=== PATIENT | male | born 1960 | race Caucasian/White ===

== ENCOUNTER 2017-07-25 10:29 | Inpatient (IN) | payer OTHER ==
[~2017-07-25] VITALS: Ht 170.2 cm; Wt 83.5 kg
--- NOTE | 2017-07-25 11:12 | ED GENERAL ADULT ---
History of Present Illness General Chief Complaint: Low Back Pain/Injury Stated Complaint: BACK PAIN RADIATING DOWN LEG Source: patient, family Exam Limitations: no limitations Vital Signs & Intake/Output Vital Signs & Intake/Output Vital Signs Date Time Temp Pulse Resp B/P B/P Pulse O2 O2 Flow FiO2 Mean Ox Delivery Rate 07/26 0751 98.6 58 18 119/64 96 Room Air 07/26 0544 98.6 58 20 119/64 96 Room Air 07/26 0313 99.0 62 20 128/72 97 Room Air 07/25 2328 99.1 64 16 114/55 97 Room Air 07/25 2121 98.9 62 20 128/70 97 Room Air 07/25 1933 99.6 60 16 132/65 96 Room Air 07/25 1539 98.2 59 18 139/69 07/25 1539 98.2 59 18 139/69 07/25 1340 98.2 59 18 139/69 98 Room Air ED Intake and Output 07/26 0000 07/25 1200 Intake Total 0 Output Total Balance 0 Intake, Oral 0 Patient 184 lb Weight Weight Reported by Patient Measurement Method Allergies Coded Allergies: No Known Allergies (07/25/17) Triage Note: 57 YO MALE TO TRIAGE C/O LOW BACK PAIN RADIATING DOWN L LEG. STATES PAIN STARTED AFTER HE LEF TTHE GYM APPROX 1 WEEK AGO, STATES THE BACK PAIN IS BETTER BUT NOW HE HAS SWELLING TO ENTIRE L LEG. UNABLE TO VISUALIZE IN TRIAGE. Triage Nurses Notes Reviewed? yes HPI: 57 yo M PMH HTN, HLD presenting with back pain, leg swelling. Patient endorses 3-4 days of bilateral lower back pain, now worse in the left hip, constant with fluctuating intensity, worse with movement, associated decreased ambulation. Yesterday patient developed episode of palpitations, dizziness, diaphoresis while bending over to pick something up off the floor, EMS called, symptoms resolved en route to the ED, evaluated at [facility], per patient EKG unremarkable, no lab work sent, told that "there are crystals in the ear that can make people dizzy." Today patient woke up with pronounced LLE swelling and pain, no parasthesias or paralysis, but some difficulty walking 2/2 swelling. Denies current chest pain, palpitations, SOB. (Jacky BECKER,Erik) Reconcile Medications Acetaminophen (Tylenol Extra Strength) 500 MG TABLET 1 TAB PO TID pain Apixaban (Eliquis) 5 MG TABLET 5 MG PO SEE ADMIN CRITERIA DVT/PE TAKE 2 TABS BID DAILY FROM 07/26- 07/31 TAKE ONE TAB BID DAILY FROM 08/01 ONWARDS Atorvastatin Calcium 40 MG TABLET 40 MG PO 1700 Hyperlipidemia Escitalopram Oxalate (Lexapro) 10 MG TABLET 1 TAB PO DAILY DEPRESSION ( Reported) Losartan (Cozaar) 100 MG TABLET 1 TAB PO DAILY BP (Reported) Metoprolol Succ XL (Toprol XL) 25 MG TAB 1 TAB PO DAILY BP (Reported) (Mandy BECKER,Gina) Past History Travel History Traveled to [place] past 21 day No Medical History Any Pertinent Medical History? see below for history Neurological: NONE EENT: NONE Cardiovascular: hypertension, hyperlipidemia Respiratory: NONE Gastrointestinal: NONE Hepatic: NONE Renal: NONE Musculoskeletal: NONE Psychiatric: anxiety Endocrine: NONE Blood Disorders: NONE Cancer(s): NONE Surgical History Surgical History: none Psychosocial History What is your primary language Maltese Tobacco Use: Quit >30 days ago Family History Hx Contributory? Yes (Erik Rico MD) Review of Systems Review of Systems Constitutional: Reports: no symptoms. EENTM: Reports: no symptoms. Respiratory: Reports: see HPI. Cardiovascular: Reports: see HPI. GI: Reports: no symptoms. Genitourinary: Reports: no symptoms. Musculoskeletal: Reports: see HPI. Skin: Reports: no symptoms. Neurological/Psychological: Reports: no symptoms. Hematologic/Endocrine: Reports: no symptoms. Immunologic/Allergic: Reports: no symptoms. All Other Systems: Reviewed and Negative (Erik Rico MD) Physical Exam Physical Exam General Appearance: well developed/nourished, no apparent distress, alert Ears, Nose, Throat: normal pharynx Neck: normal inspection, full range of motion, limited range of motion Respiratory: normal breath sounds, no respiratory distress, lungs clear Cardiovascular: regular rate/rhythm, normal peripheral pulses Peripheral Pulses: 2+ tibialis posterior (R), 2+ tibialis posterior (L) Gastrointestinal: normal bowel sounds, soft, non-tender Extremities: swelling Comments: Lungs: CTAB Cardiovascular: RRR LLE: Marked circumferential swelling of left lower extremity with edema and mild TTP throughout, 2+ PT pulse without motor deficits Core Measures ACS in differential dx? Yes CVA/TIA Diagnosis: No Sepsis Present: No Sepsis Focused Exam Completed? No (Erik Rico MD) Progress Differential Diagnoses I considered the following diagnoses in my evaluation of the patient: [ Clot, cellulitis, vascular insufficiency, AAA, Aortic dissection] Plan of Care: Orders Procedure Date/time Status Change service to 07/26 0829 Active Vital Signs 07/26 0740 Active Teach/Educate 07/26 0740 Active Pain Treatment and Response 07/26 0740 Active Nutritional Intake, Monitor 07/26 0740 Active Isolation 07/26 0740 Active Intake & Output 07/26 0740 Active Patient Care Conference 07/26 0740 Active Activity/Ambulation 07/26 0740 Active LIPID PANEL 07/26 0600 Complete CBC WITHOUT DIFFERENTIAL 07/26 0600 Complete Discharge Patient 07/26 UNK Active Change service to 07/26 UNK Active Regular Diet 07/25 D Active Patient Data 07/25 2320 Active Transfer patient to 07/25 1725 Active Code Status 07/25 1549 Active Misc Message 07/25 1548 Active ED Holding Orders 07/25 1548 Active Code Status 07/25 1548 Complete Admit to inpatient 07/25 1547 Active Pathway - chart 07/25 1502 Active House Staff 07/25 1502 Active Patient Data 07/25 1502 Active Code Status 07/25 1502 Complete Add-on Test (ER Only) 07/25 1424 Active Patient Data 07/25 1403 Active B-TYPE NATRIURETIC PEP (BNP) 07/25 1200 Complete Intake & Output 07/25 1120 Active VTE Mechanical Prophylaxis 07/25 UNK Active Telemetry/City Assessor 07/25 UNK Complete Nursing Misc 07/25 UNK Active Elevate 07/25 UNK Active Current Medications Sig/Myrna Start time Last Medication Dose Stop Time Status Admin Atorvastatin Calcium 40 MG 1700 07/26 1700 AC (Lipitor) Acetaminophen 1,000 MG Q6P PRN 07/25 2330 AC 07/26 (Ofirmev) 0311 N/A 1 UNIT (No Carrier) Morphine Sulfate 2 MG Q8P PRN 07/25 2330 AC 07/25 (Morphine) 2324 Apixaban 10 MG Q12H 07/25 1730 AC 07/26 (Eliquis) 08/01 0531 0543 Escitalopram Oxalate 10 MG DAILY 07/25 1501 AC 07/26 (Lexapro) 1041 Losartan Potassium 100 MG DAILY 07/25 1501 AC 07/26 (Cozaar) 1041 Metoprolol Succinate 25 MG DAILY 07/25 1501 AC 07/26 (Toprol XL) 1041 Laboratory Tests 07/26/17 0549: Triglycerides 149, Cholesterol 210 H, LDL Cholesterol, Calc 143 H, HDL Cholesterol 38 L, Cholesterol/HDL Ratio 6 H, CBC w Diff NO MAN DIFF REQ, RBC 5.91, MCV 65.6 L, MCH 20.8 L, RDW 14.5, MPV 7.4, Gran % 73.5, Lymphocytes % 14.6 L, Monocytes % 10.8 H, Eosinophils % 0.9, Basophils % 0.2, Absolute Granulocytes 7.3 H, Absolute Lymphocytes 1.4, Absolute Monocytes 1.1 H, Absolute Eosinophils 0.1, Absolute Basophils 0, PUBS MCHC 31.6 L 07/25/17 2020: APTT Cancelled Physician MDM: 57 yo M PMH HTN, HLD presenting with back pain, leg swelling. HR 60s, saturating well on RA, remainder of exam as above. DDx: Aortic dissection, DVT/PE, lumbosacral strain, arterial insufficiency. ECG 1st degree heart block with prolonged GA, Q wave in III, TWI in V1, no QUINN or STD. Troponin negative. Bedside ultrasound with normal abdominal aorta, limited views but no apparent dissection flap or false lumen. Bedside ultrasound of LLE with large clot in left femoral and left popliteal vein, formal LLE U/S ordered. I suspect that the patients dizziness, diaphoresis and palpitations yesterday we're likely 2/2 throwing a large PE that broke up, passing into the subsegmental arteries leading to resolution of Sx, so CTA for PE ordered. CBC, BMP unremarkable. LLE U /S with "extensive, occlusive and nonocclusive deep vein thrombosis in the left lower extremity". CTA PE with "Multiple bilateral pulmonary emboli without evidence of right heart strain". Bedside ultasound without apparent RV dilation or right heart strain, unable to assess TR jets or measure TAPSE given limitations of ED ultrasound, but TAPSE grossly normal with good RV excursion. Heparin gtt started for anticoagulation for PE. Admit for telemetry monitoring, initiation of longitudinal float operator anticoagulation and further evaluation. Initial ED EKG: none (Jacky BECKER,Erik) Departure Departure Disposition: STILL A PATIENT Condition: Stable Clinical Impression Primary Impression: PE (pulmonary thromboembolism) Secondary Impressions: Left leg DVT Referrals: Oscar Nation MD (PCP/Family) Departure Forms: Customer Survey General Discharge Information Admission Note Spoke With: Suha Echevarria MD Documentation of Exam: Documentation of any treatments & extenuating circumstances including Concerns Regarding Discharge (functional status, medication knowledge or non-compliance, living conditions, etc.) that warrant an admission rather than observation: [ Presents with left lower extremity swelling, episode of palpitations and diaphoresis yesterday, was found to have large occlusive left lower extremity DVT with multiple bilateral subsegmental pulmonary emboli, the patient requires admission for initiation of anticoagulation, on a tree monitoring, and further evaluation by vascular surgery and possibly pulmonary consult, if discharge the patient has a high likelihood of progressive clotting, possibly with recurrent thromboembolism leading to arrhythmia or sudden with possible neurologic morbidity or mortality] (Erik Rico MD) Departure Prescriptions: Current Visit Scripts Apixaban (Eliquis) 5 MG PO SEE ADMIN CRITERIA #90 TAB TAKE 2 TABS BID DAILY FROM 07/26- 07/31 TAKE ONE TAB BID DAILY FROM 08/01 ONWARDS Atorvastatin Calcium 40 MG PO 1700 #30 TAB Acetaminophen (Tylenol Extra Strength) 1 TAB PO TID #60 TAB Resident Co-Sign Statement Statement: ED Attending supervision documentation- [] I saw and evaluated the patient. I have also reviewed all the pertinent lab results and diagnostic results. I agree with the findings and the plan of care as documented in the Resident's documentation. [X] I have reviewed the ED Record and agree with the Resident's documentation. [] Additions or exceptions (if any) to the Resident's note and plan are summarized below: [] (Mandy BECKER,Gina) Critical Care Note Critical Care Note Critical Care Time: non-applicable (Erik Rico MD)
[2017-07-25] MEDS ORDERED: TOPROL XL25 M1 PO (12:04)
[2017-07-25] MEDS ORDERED: COZAAR100 M1 PO (12:05)
[2017-07-25] MEDS ORDERED: LEXAPRO10 M1 PO (12:05)
[2017-07-25 12:10] LABS: ABSOLUTE BASOPHIL COUNT 0 /CUMM (0.0-0.2); ABSOLUTE EOSINOPHIL COUNT 0.1 /CUMM (0.0-0.7); ABSOLUTE GRANULOCYTE CT 8.9 /CUMM (1.4-6.5); ABSOLUTE LYMPH COUNT 1.1 /CUMM (1.2-3.4); ABSOLUTE MONOCYTE COUNT 0.8 /CUMM (0.10-0.60); BASOPHIL % 0.2 % (0.0-2.0); EOSINOPHIL % 0.8 % (0-5); GRANULOCYTE % 81.1 % (42.2-75.2); HEMATOCRIT 42.1 % (42-52); MEAN CORPUSCULAR HGB CONC 31.9 G/DL (33.0-37.0); MEAN CORPUSCULAR VOLUME 65.9 FL (80.0-94.0); MEAN PLATELET VOLUME 7.6 FL (7.4-10.4); PLATELET COUNT 195 /CUMM (130-400); RBC DISTRIBUTION WIDTH 14.7 % (11.5-14.5); RED BLOOD CELL CT 6.39 /CUMM (4.70-6.10); WHITE BLOOD CELL COUNT 10.9 /CUMM (4.8-10.8)
--- NOTE | 2017-07-25 13:33 | ULTRASOUND REPORT ---
EXAMINATION: US TRIPLEX LOWER EXTREMITY, LEFT CLINICAL INFORMATION: Left leg swelling. Shortness of breath. COMPARISON: None TECHNIQUE: Color-flow triplex imaging with spectral analysis and compression Doppler were performed on the lower extremity. FINDINGS: Grayscale and color Doppler images show occlusive thrombus within the left common femoral vein. Thrombus also observed in the greater saphenous vein at the saphenofemoral junction. There is occlusive thrombus within the superficial femoral vein of the proximal, mid and distal thigh. The thrombus is nearly completely occlusive in the popliteal vein and tibioperoneal trunk. There appears to be nonocclusive thrombus within calf veins, as well. No Renee's cyst. IMPRESSION: There is extensive, occlusive and nonocclusive deep vein thrombosis in the left lower extremity as described above. The critical test result was discussed with Erik Rico at 1:28 PM on 07/25/2017 and it was ascertained that the content and the importance of the findings was understood at the time of the direct communication.
--- NOTE | 2017-07-25 13:45 | CT SCAN REPORT ---
EXAMINATION: CT ANGIOGRAM OF THE CHEST WITH CONTRAST (CT PULMONARY ANGIOGRAM FOR PE) CLINICAL INFORMATION: Dizziness and shortness of breath. Left lower extremity deep vein thrombosis. COMPARISON: No pertinent prior studies are available for comparison. TECHNIQUE: Prior to contrast administration, noncontrast localization images were obtained. Subsequently, multidetector volumetric imaging was performed from the thoracic inlet to below the diaphragms following the administration of 95 mL Optiray 320 intravenous contrast. No contrast reaction reported. Sagittal, coronal, and MIP oblique sagittal reformatted images were obtained on the CT workstation, uploaded to PACS, and reviewed. Total exam dose-length product 554 mGy-cm FINDINGS: QUALITY OF STUDY/CONTRAST BOLUS: Satisfactory. PULMONARY ARTERIES: Pulmonary arteries are normal in size. Multiple nonocclusive bilateral pulmonary emboli are seen. There are elongated filling defects extending into subsegmental branches of the right upper lobe, lateral segment of the middle lobe, superior segment of the right lower lobe, interlobar artery and into several segmental branches of right lower lobe. On the left, emboli are seen within the apicoposterior segment of the left upper lobe and within the branch to the inferior segment of the lingula. Also, nonocclusive emboli are present within segmental branches of the left lower lobe. THORACIC AORTA: Normal. LUNGS AND PLEURA: Trachea and central airways are widely patent and normal in caliber. Within the posterior right lower lobe extending to the pleura, there is a focal area of consolidation and groundglass attenuation, likely representing pulmonary hemorrhage and/or infarction secondary to the embolic disease. No pleural effusion or pneumothorax. MEDIASTINUM: The heart size is normal. No pericardial effusion. No evidence of septal bowing or right heart strain. The esophagus is unremarkable. The visualized portion of the thyroid gland is normal. LYMPHATICS: No pathologic sized axillary, hilar or mediastinal lymph nodes. UPPER ABDOMEN: Unremarkable. No reflux of contrast into the hepatic veins to suggest elevated right heart pressures. OSSEOUS STRUCTURES: No acute findings in the degenerated spine. There is multilevel, mild disc space narrowing and osteophyte formation. No aggressive osseous lesions. IMPRESSION: 1. Multiple bilateral pulmonary emboli without evidence of right heart strain. 2. Within the periphery of the posterior right lower lobe, there is a focal region of consolidation and groundglass attenuation, compatible with infarct and/or hemorrhage related to the embolic disease. No pleural effusion. The critical test result was discussed with Erik Rico at 1:28 pm on 07/25/2017 and it was ascertained that the content and the importance of the findings was understood at the time of the direct communication.
--- NOTE | 2017-07-25 14:27 | History & Physical ---
Norma BECKER,Christen 07/25/17 1427: General Information and [facility] MD Statement: I have seen and personally examined ALEXX AVERY and documented this H&P. The patient is a 57 year old M who presented with a patient stated chief complaint of [pain in left lower extremeties]. Source of Information: patient Exam Limitations: no limitations History of Present Illness: Patient is a 57-year-old male with significant past medical history of hypertension, hyperlipidemia, depression presented with chief complaints of pain in the left lower extremity since last 1 week. According to the patient 7 days ago(Wednesday), when he woke up in the morning he felt a strain in his back and he thought he pulled his muscle.He continued working on that day and even on the next day he walked for 3 miles.After that his back pain has gone, but he started having pain in his left hip. Yesterday when he woke up he felt dizzy and when he went to the bathroom, he had an episode of severe perspiration and sweating.He talked to his and went to the [facility]. They did told him that he may have BPPV and need some rest and medication and he will recover after sometime. Yesterday night,he was not able to sleep at all. Today in the morning his pain in the left leg has become worse and he started having severe swelling, started from the hip to the ankle of the left leg. Afterwards he thought to come to [facility] for further evaluation and management. He described his pain located in the left hip, 8-10, burning in nature, radiate to left leg, aggravated by walking. Denies for any fever, chills, URI, urinary infection, dysuria, incontinence of the stool, incontinence of the urine, chest pain, abdominal pain, diarrhea. Past medical history - hypertension, hyperlipidemia, depression Surgical history-tonsillectomy, circumcision. Family history-father had a stroke at the age of 60, Mother had a stroke Allergies-testosterone leading to hives Personal history-lives with the family, he smoked at the age of 30 and was stopped at the age of 35. He smokes one pack per day. He occasionally drinks alcohol, around 1 beer in once or twice a week. He denies any drug abuse. Allergies/Medications Allergies: Coded Allergies: No Known Allergies (07/25/17) Home Med list Escitalopram Oxalate (Lexapro) 10 MG TABLET 1 TAB PO DAILY DEPRESSION ( Reported) Losartan (Cozaar) 100 MG TABLET 1 TAB PO DAILY BP (Reported) Metoprolol Succ XL (Toprol XL) 25 MG TAB 1 TAB PO DAILY BP (Reported) Past History Travel History Traveled to [place] past 21 day No Medical History Neurological: NONE EENT: NONE Cardiovascular: hypertension, hyperlipidemia Respiratory: NONE Gastrointestinal: NONE Hepatic: NONE Renal: NONE Musculoskeletal: NONE Psychiatric: anxiety Endocrine: NONE Blood Disorders: NONE Cancer(s): NONE Surgical History Surgical History: non-contributory Review of Systems Review of Systems Constitutional: Denies: no symptoms. Exam & Diagnostic Data Last 24 Hrs of Vital Signs/I&O Vital Signs Date Time Temp Pulse Resp B/P B/P Pulse O2 O2 Flow FiO2 Mean Ox Delivery Rate 07/25 1539 98.2 59 18 139/69 07/25 1539 98.2 59 18 139/69 07/25 1340 98.2 59 18 139/69 98 Room Air 07/25 1202 98.6 55 18 150/75 98 Room Air 07/25 1033 98.2 89 18 149/79 98 Room Air Intake & Output 07/25 1600 07/25 0800 07/25 0000 Intake Total 0 Output Total Balance 0 Intake, Oral 0 Patient 83.461 kg Weight Weight Reported by Patient Measurement Method Physical Exam General Appearance Alert, Oriented X3, Cooperative, No Acute Distress Skin swelling in left HEENT Atraumatic, PERRLA, EOMI Neck Supple, No JVD Cardiovascular Normal S1, Normal S2 Lungs Clear to Auscultation, Normal Air Movement Abdomen Soft, No Tenderness Extremities No Clubbing, No Cyanosis, left lower leg swelling, tenderness, pulse were palpable Vascular Normal Pulses, Pulses Symmetrical Assessment/Plan Assessment: Patient is a 57-year-old male with significant past medical history of hypertension, hyperlipidemia, depression presented with chief complaints of pain in the left lower extremity since last 1 week. ED course - vital signs at the time of admission - temperature 98.2, pulse 89, respiratory rate 18, blood pressure 149/79, SPO2 98% on room air. Blood workup -hemoglobin 13.4, hematocrit 42.1, platelet count 195, sodium 141, potassium 4.8, Co2 28, anion gap 15, BUN 17, creatinine 0.8, glucose 108, calcium 9.4, creatinine kinase 238, troponin less than 0.01, proBNP 28.2. Imaging - Venous Doppler study -occlusive thrombus within the left common femoral vein. Thrombus also observed in the greater saphenous vein at the saphenofemoral junction. There is occlusive thrombus within the superficial femoral vein of the proximal, mid and distal thigh. The thrombus is nearly completely occlusive in the popliteal vein and tibioperoneal trunk. There appears to be nonocclusive thrombus within calf veins, as well. CTA -Multiple bilateral pulmonary emboli without evidence of right heart strain. Within the periphery of the posterior right lower lobe, there is a focal region of consolidation and groundglass attenuation, compatible with infarct and/or hemorrhage related to the embolic disease. Assessment and plan -Patient is a 57-year-old male with coronary artery disease risk factor, presented with left lower leg swelling, found to have left lower leg extremity DVT along with bilateral PE. He does not have any risk factors including family history, smoking, stasis, dehydration, infection. Left lower extremity DVT along with bilateral PE - * Patient was started on IV heparin in emergency department. * We discussed with the patient about Coumadin and Noac. He was okay with starting Eliquis. * Advised to stop the heparin and start the patient on tablet Eliquis 10 mgs twice a day for 7 days followed by 5 mgs twice a day. * Advised to watch for bleeding * Advised for the signs of right heart strain * Keep left lower limb elevated * Advised to follow-up with vascular surgery * Plan to discharge tomorrow if patient remains stable. Hypertension - * We will continue tablet metoprolol 25 mgs once a day, and tablet losartan 100 mgs once a day Hyperlipidemia - * We'll start him on tab Crestor 10 mgs once a day * We'll follow with lipid profile Depression - * On Ecitalopram 10mg Daily CODE STATUS-full code Diet-heart healthy diet DVT prophylaxis-heparin/Eliquis As Ranked By This Provider Problem List: 1. Left leg DVT 2. PE (pulmonary thromboembolism) Core Measures/Misc (03/28) Acute Coronary Syndrome ACS Diagnosis: No Congestive Heart Failure Congestive Heart Failure Diagnosis No Cerebrovascular Accident CVA/TIA Diagnosis: No VTE (View Protocol) VTE Risk Factors Age>40 No Mechanical VTE Prophylaxis d/t DVT (suspected/known) No VTE Pharm Prophylaxis d/t NA PharmProphylax ordered Sepsis (View protocol) Sepsis Present: Bell Echevarria MD,Suha 07/25/172050: Attending MD Review Statement Attending Statement Attending MD Statement: examined this patient, discuss w/resident/PA/WIRELESS SALES EXPERT, agreed w/resident/PA/WIRELESS SALES EXPERT, reviewed EMR data (avail), discussed with nursing, amended to note Attending Assessment/Plan: The patient is a 57-year-old male with history of hypertension who presents with complaints of left lower extremity pain going on for the past few days. Reports that overnight he developed left leg swelling and difficulty breathing. Emergency room workup reveals extensive left lower extremity DVT and multiple bilateral pulmonary embolism. On examination he is not in any respiratory distress. He is not requiring oxygen supplementation. The lower extremity shows no evidence of limb ischemia. In the emergency room he was started on Lantus cognition with IV heparin. He has been transitioned to request and will require lifelong anticoagulation for this unprovoked deep prevent thrombosis. I 've discussed with the patient anticoagulation options and after counseling he has decided to proceed with NOAC therapy over Coumadin. I also discussed with him the risk of anticoagulation therapy and he verbalizes understanding. Due to the extensive nature of the clot in the lower extremity vascular surgery consultation has been placed. As an outpatient patient will require age- appropriate cancer screening as well as coagulopathy workup. I have also discussed this with the patient.
--- NOTE | 2017-07-25 19:21 | Cons- Vascular Surgery ---
Debo Edwards 07/25/17 1900: General Information and HPI Consulting Request Date of Consult: 07/25/17 Requested By: Suha Echevarria MD Reason for Consult: DVT/PE Source of Information: patient Exam Limitations: no limitations History of Present Illness: This is a 57 year old male who presents to the ER today with complaints of left leg swelling. He states that 5 days ago he began to notice discomfort in his left groin that would be temporarily relieved with massage and application of heat. He was able to amublate but felt that he sustained a muscle pull resulting in this discomfort. He reports that one day ago he stood from a seated position and had an acute onset of dizziness, diahporesis and gi distress. He called 911 and was brought by ambulance to [facility] Emergency Department. There he was diagnosed with BPPV and was discharged to home. He continued to have left lower extremity discomfort but was able to sleep after taking two aspirin. This morning he noticed worsening left lower extremity edema that encompases his entire left leg from groin to foot. He also noted some redness to his left leg when compared to his right. He states that he is still able to ambulate and weight bear but due to the discomfort, he feels that his motion is limited. He presently denies chest pain and shortness of breath. A doppler study was done which demonstrates a large occlusive iliac dvt. A CT scan was done which shows multiple bilateral PE. He has a history of 1 ppd smoking, he stopped at age 35. He has a family history of stroke (father) Surgical history: tonsillectomy and circumcision Allergies/Medications Allergies: Coded Allergies: No Known Allergies (07/25/17) Past History Medical History Neurological: NONE EENT: NONE Cardiovascular: hypertension, hyperlipidemia Respiratory: NONE Gastrointestinal: NONE Hepatic: NONE Renal: NONE Musculoskeletal: NONE Psychiatric: anxiety Endocrine: NONE Blood Disorders: NONE Cancer(s): NONE Surgical History Pertinent Surgical History: non-contributory Review of Systems Review of Systems Constitutional: Reports: see HPI, diaphoresis, malaise, weakness. EENTM: Reports: no symptoms. Cardiovascular: Reports: edema, palpitations, peripheral edema. Respiratory: Reports: no symptoms. GI: Reports: see HPI. Genitourinary: Reports: no symptoms. Musculoskeletal: Reports: see HPI, back pain, joint pain, joint swelling, muscle pain, muscle stiffness. Skin: Reports: change in skin color. Neurological/Psychological: Reports: see HPI. Hematologic/Endocrine: Reports: no symptoms. Exam & Diagnostic Data Vital Signs and I&O Vital Signs Date Time Temp Pulse Resp B/P B/P Pulse O2 O2 Flow FiO2 Mean Ox Delivery Rate 07/25 1539 98.2 59 18 139/69 07/25 1539 98.2 59 18 139/69 07/25 1340 98.2 59 18 139/69 98 Room Air 07/25 1202 98.6 55 18 150/75 98 Room Air 07/25 1033 98.2 89 18 149/79 98 Room Air Intake & Output 07/25 1600 07/25 0800 07/25 0000 07/24 1600 07/24 0800 07/24 0000 Intake Total 0 Output Total Balance 0 Intake, Oral 0 Patient 184 lb Weight Weight Reported by Patient Measurement Method Physical Exam: General: Alert and oriented x3, no acute distress Cardiac: RRR, s1s2 Pulm: Diminished breath sounds bilaterally, clear Abdomen: Non-tender, non-distended Extremities: Moves all extremities. Distal sensations grossly intact bilaterally. Left leg edema, motor intact, distal pulses palpable, skin warm, redness in thigh, calf tight but compressible. RLE calf soft and non-tender. Assessment/Plan Assessment/Plan This is a 57 year old male who presents to the ER today with a multiday history of LLE discomfort. Diagnostic imaging obtained shows iliac dvt and multiple bilateral PE. This case was discussed with Dr. Phoenix Kemp -Managment to include anticoagulation at the present time. Patient has been started on heparin gtt as well as eliquis 10 BID -Patient will require Surveillance Duplex in one week, this can be done as outpatient -Patient is to follow up with Dr. Kemp No surgical intervention indicated at the present time, however, if patient does not respond appropriately to anticoagulation, or if clinical condition worsens, vascular surgery will reassess. Consult Acknowledgment - Thank you for your consult request. Phoenix Kemp MD 07/26/17 3197: General Information and HPI Allergies/Medications Home Med List: Apixaban (Eliquis) 5 MG TABLET 5 MG PO SEE ADMIN CRITERIA DVT/PE TAKE 2 TABS BID DAILY FROM 07/26- 07/31 TAKE ONE TAB BID DAILY FROM 08/01 ONWARDS Atorvastatin Calcium 40 MG TABLET 40 MG PO 1700 Hyperlipidemia Escitalopram Oxalate (Lexapro) 10 MG TABLET 1 TAB PO DAILY DEPRESSION ( Reported) Losartan (Cozaar) 100 MG TABLET 1 TAB PO DAILY BP (Reported) Metoprolol Succ XL (Toprol XL) 25 MG TAB 1 TAB PO DAILY BP (Reported) Assessment/Plan Consult Acknowledgment - Thank you for your consult request. Attending MD Review Statement Attending Statement Attending MD Statement: examined this patient Attending Assessment/Plan: He has left leg DVT with PE. He is adequately managed with anticoagulation, and caval interruption is not indicated at this time. Surveillance duplex in 1 week. If he shows evidence of right heart strain or recurrent embolization, caval interruption is then warranted. Encourage mobilization, compression.
--- NOTE | 2017-07-25 20:50 | Admission Certification ---
Admission Certification Certification Statement - As attending physician, I certify that at the time of - admission, based on clinical presentation, severity of - symptoms, need for further diagnostic testing and - therapeutic interventions, and risk of adverse outcomes - without in-hospital treatment, in my clinical assessment, - this patient requires an acute hospital stay for a minimum - of two nights or longer. I have also considered psychsocial - factors such as support system, advanced age, financial - issues, cognitive issues, and failed out-patient treatments, - past re-admission history, safety of patient, and lack of - compliance as applicable. Specific rationale supporting this admission is: Patient requires hospitalization for management of his Bilateral PE.
[2017-07-26 06:07] LABS: ABSOLUTE BASOPHIL COUNT 0 /CUMM (0.0-0.2); ABSOLUTE EOSINOPHIL COUNT 0.1 /CUMM (0.0-0.7); ABSOLUTE GRANULOCYTE CT 7.3 /CUMM (1.4-6.5); ABSOLUTE LYMPH COUNT 1.4 /CUMM (1.2-3.4); ABSOLUTE MONOCYTE COUNT 1.1 /CUMM (0.10-0.60); BASOPHIL % 0.2 % (0.0-2.0); EOSINOPHIL % 0.9 % (0-5); GRANULOCYTE % 73.5 % (42.2-75.2); HEMATOCRIT 38.7 % (42-52); MEAN CORPUSCULAR HGB 20.8 PG (27.0-31.0); MEAN CORPUSCULAR HGB CONC 31.6 G/DL (33.0-37.0); MEAN CORPUSCULAR VOLUME 65.6 FL (80.0-94.0); MEAN PLATELET VOLUME 7.4 FL (7.4-10.4); PLATELET COUNT 222 /CUMM (130-400); RBC DISTRIBUTION WIDTH 14.5 % (11.5-14.5); RED BLOOD CELL CT 5.91 /CUMM (4.70-6.10); WHITE BLOOD CELL COUNT 9.9 /CUMM (4.8-10.8)
--- NOTE | 2017-07-26 07:29 | PN- Housestaff ---
Sanjay BECKER,Linda 07/26/17 0729: Subjective Follow-up For: Left lower extremity DVT along with bilateral PE Hypertension Hyperlipidemia Depression Subjective: Patient is seen and examined at bedside, he denies any pain in his left LE , chest pain , chillis or palpitation. only reports not being able to sleep last nightr, but he mentioned that he has a chronic insomnia. Review of Systems Constitutional: Denies: no symptoms. Cardiovascular: Denies: no symptoms. Respiratory: Denies: cough, hemoptysis, orthopnea, short of breath, sputum production. Gastrointestinal: Denies: no symptoms. Genitourinary: Denies: no symptoms. Musculoskeletal: Denies: no symptoms. Objective Last 24 Hrs of Vital Signs/I&O Vital Signs Date Time Temp Pulse Resp B/P B/P Pulse O2 O2 Flow FiO2 Mean Ox Delivery Rate 07/26 0751 98.6 58 18 119/64 96 Room Air 07/26 0544 98.6 58 20 119/64 96 Room Air 07/26 0313 99.0 62 20 128/72 97 Room Air 07/25 2328 99.1 64 16 114/55 97 Room Air 07/25 2121 98.9 62 20 128/70 97 Room Air 07/25 1933 99.6 60 16 132/65 96 Room Air 07/25 1539 98.2 59 18 139/69 07/25 1539 98.2 59 18 139/69 07/25 1340 98.2 59 18 139/69 98 Room Air 07/25 1202 98.6 55 18 150/75 98 Room Air 07/25 1033 98.2 89 18 149/79 98 Room Air Intake & Output 07/26 1600 07/26 0800 07/26 0000 Intake Total Output Total 100 Balance -100 Output, Urine 100 Patient 184 lb Weight Weight Reported by Patient Measurement Method Physical Exam General Appearance: Alert, Oriented X3, Cooperative, No Acute Distress Skin: No Rashes, No Breakdown, No Significant Lesion HEENT: Atraumatic, PERRLA, EOMI, Mucous Membr. moist/pink Neck: Supple, No JVD Cardiovascular: Normal S1, Normal S2, No Murmurs Lungs: Clear to Auscultation Abdomen: Normal Bowel Sounds, Soft, No Tenderness Neurological: Normal Speech, Strength at 5/5 X4 Ext, Normal Tone Extremities: left LE pitting 2 + edema to the level of the thigh Vascular: Normal Pulses, Pulses Symmetrical Assessment/Plan Assessment: 57 years old male with PMH of HTN, HLD , depression, presented to [facility] c/o of LLE pain for 1 week, venous doppler showed: occlusive thrombus in the left common femoral vein, thrombus also in the greater saphenous vein at the saphenofemoral junction.There is occlusive thrombus within the superficial femoral vein of the proximal, mid and distal thigh. The thrombus is nearly completely occlusive in the popliteal vein and tibioperoneal trunk. There appears to be nonocclusive thrombus within calf veins , as well. CTA -Multiple bilateral pulmonary emboli without evidence of right heart strain. Within the periphery of the posterior right lower lobe, there is a focal region of consolidation and groundglass attenuation, compatible with infarct and/or hemorrhage related to the embolic disease. Left common femoral vein DVT, bilateral PE Patient was started on IV heparin in the ED Continue Eliquis 10 mg twice a day Vascular surgery recommended repeating duplex in 1 week No surgical intervention is needed for now as per vascular surgery keep LLE elevated Follow up with vascular surgery Hypertension - -We will continue tablet metoprolol 25 mgs once a day, and tablet losartan 100 mgs once a day Hyperlipidemia - -We'll start him on tab Crestor 10 mgs once a day -We'll follow with lipid profile Depression -On Ecitalopram 10mg Daily Recent is stable for discharge home today on Eliquis, to follow-up with vascular surgery and hematology as outpatient full code heart healthy diet DVT prophylaxis-heparin/Eliquis Problem List: 1. Left leg DVT 2. PE (pulmonary thromboembolism) Pain Ratin Pain Location: N/A Pain Goal: Remain pain free Pain Plan: pathway Tomorrow's Labs & Rationales: cbc bep DVT/Prophylaxis: pharmacological Guilherme Johnson MD 07/26/17 1257: Attending MD Review Statement Attending Statement Attending MD Statement: examined this patient, discuss w/resident/PA/CHERRY CUTTER, agreed w/resident/PA/CHERRY CUTTER, reviewed EMR data (avail) Attending Assessment/Plan: 57M PMH HTN, HLD presenting with episode of lightheadedness and diaphoresis, with left upper leg swelling in the setting of acute bilateral pulmonary embolism with left upper leg DVT. No evidence of cor pulmonale, not hypoxic, comfortable, no chest pain or lightheadedness. Patient reports that he mostly lies down in his bed all day long for the past 6 months, but will get up to jog or exercise every other day. He smokes, and is up to date on his cancer screening. He also reports significant myalgia with his statin, and has stopped taking it the past few months. Vitals stable, labs reviewed. 1. Acute bilateral pulmonary embolism without cor pulmonale 2. Left upper leg DVT 3. Statin induced myopathy Plan - Stable for discharge home - Ayla indefinitely - Vascular surgery outpatient follow up - Discontinue statin on discharge, follow up with primary care for adjustment - Continue remaining home medications - Educated patient about bleeding risks, managing symptoms of PE/DVT, answered all questions
[2017-07-26 07:51] VITALS: BP 119/64
--- NOTE | 2017-07-26 09:24 | Patient Discharge Instructions ---
Discharge Instructions General Discharge Information You were seen/treated for: Left LE DVT PE Special Instructions: 1- please follow up with PCP in 1 week of discharge 2- Please follow up with your vascular surgeon in 1 week of discharge 3- please get duplex U/s of LLE for follow up in 1 week of discharge 4- Please take meds as advised 5- PLEASE FLLOW UP WITH MEAT APPRENTICE IN1 WEEK Diet Continue normal diet: Yes Activity Full Activity/No Limits: Yes Acute Coronary Syndrome Inclusion Criteria At DC or during hospital stay patient has or had the following: ACS DIAGNOSIS No Discharge Core Measures Meds if any: Prescribed or Continued at Discharge Meds if any: NOT Prescribed or Continued at Discharge Congestive Heart Failure Inclusion Criteria At DC or during hospital stay patient has or had the following: CHF DIAGNOSIS No Discharge Core Measures Meds if any: Prescribed or Continued at Discharge Meds if any: NOT Prescribed or Continued at Discharge Cerebrovascular accident Inclusion Criteria At DC or during hospital stay patient has or had the following: CVA/TIA Diagnosis No Discharge Core Measures Meds if any: Prescribed or Continued at Discharge Meds if any: NOT Prescribed or Continued at Discharge Venous thromboembolism Inclusion Criteria VTE Diagnosis Yes VTE Type Pulmonary Embolism VTE Confirmed by (Test) CT CHEST ANGIOGRAM Discharge Core Measures - Per Current guidelines, there needs to be overlap - treatment for the first 5 days of Warfarin therapy. - If discharged on Warfarin prior to 5 days of - overlap therapy, the patient will need to be - assessed for post discharge needs including - *Post discharge parental anticoagulation - *Warfarin and/or parental anticoagulation education - *Follow up date to check INR post discharge At least 5 days overlap therapy as Inpatient No Meds if any: Prescribed or Continued at Discharge Note: Overlap Therapy is Warfarin and Anticoagulant Meds if any: NOT Prescribed or Continued at Discharge
[2017-07-26] MEDS ORDERED: ELIQUIS5 M1 PO ×3 (09:25→12:14)
[2017-07-26] MEDS ORDERED: ATORVASTATIN CA40 M1 PO ×3 (09:25→12:14)
[2017-07-26] MEDS ORDERED: TYLENOL EXTRA500 M2 PO (13:05)
--- NOTE | 2017-07-26 13:12 | Discharge Summary ---
Visit Information Visit Dates Admission Date: 07/25/17 Discharge Date: 07/26/17 Hospital Course Course Attending Physician: Guilherme Johnson MD Primary Care Physician: Rios BECKER,Butler Hospital Course: Patient is a 57-year-old male with significant past medical history of hypertension, hyperlipidemia, depression presented with chief complaints of pain in the left lower extremity since last 1 week. ED course - vital signs at the time of admission - temperature 98.2, pulse 89, respiratory rate 18, blood pressure 149/79, SPO2 98% on room air. Blood workup -hemoglobin 13.4, hematocrit 42.1, platelet count 195, sodium 141, potassium 4.8, Co2 28, anion gap 15, BUN 17, creatinine 0.8, glucose 108, calcium 9.4, creatinine kinase 238, troponin less than 0.01, proBNP 28.2. Imaging - Venous Doppler study -occlusive thrombus within the left common femoral vein. Thrombus also observed in the greater saphenous vein at the saphenofemoral junction. There is occlusive thrombus within the superficial femoral vein of the proximal, mid and distal thigh. The thrombus is nearly completely occlusive in the popliteal vein and tibioperoneal trunk. There appears to be nonocclusive thrombus within calf veins, as well. CTA -Multiple bilateral pulmonary emboli without evidence of right heart strain. Within the periphery of the posterior right lower lobe, there is a focal region of consolidation and groundglass attenuation, compatible with infarct and/or hemorrhage related to the embolic disease. Left lower extremity DVT along with bilateral PE - * Received IV heparin in emergency department. * Patient was restarted on Eliquis 10 mg twice a day for a total of 7 days and, to continue on 5 mg twice a day indefinitely * Advised to watch for bleeding * Advised for the signs of right heart strain * Was advised to keep left lower limb elevated * Was Advised to follow-up with vascular surgery Hypertension - * was kept on metoprolol 25 mgs once a day, and tablet losartan 100 mgs once a day Hyperlipidemia - She was found to have cholesterol panel 210, LDL cholesterol 143, HDL cholesterol 38 * was started on Crestor 10 mgs once a day Depression - * was kept On Ecitalopram 10mg Daily CODE STATUS-full code Diet-heart healthy diet DVT prophylaxis-heparin/Eliquis Allergies: Coded Allergies: No Known Allergies (07/25/17) Disposition Summary Disposition Principal Diagnosis: Left common femoral vein DVT, bilateral PE Hypertension Hyperlipidemia Additional Diagnosis: Depression Discharge Disposition: home or self care Discharge Instructions General Discharge Information Code Status: Full Code Patient's Diet: heart healthy diet Patient's Activity: toleratd Follow-Up Instructions/Appts: 1- please follow up with PCP in 1 week of discharge 2- Please follow up with your vascular surgeon in 1 week of discharge 3- please get duplex U/s of LLE for follow up in 1 week of discharge 4- Please take meds as advised 5- PLEASE FLLOW UP WITH COMMERCIAL LEASE ADMINISTRATOR IN1 WEEK Medications at Discharge Discharge Medications: Continue taking these medications: Metoprolol Succ XL (Toprol XL) 25 MG TAB 1 Tablet ORAL DAILY Comments: Last Taken: 07/26/17 Time: 1045 AM Escitalopram Oxalate (Lexapro) 10 MG TABLET 1 Tablet ORAL DAILY Comments: Last Taken: 07/26/17 Time: 1045 AM Losartan (Cozaar) 100 MG TABLET 1 Tablet ORAL DAILY Comments: Last Taken: 07/26/17 Time: 1045 AM Start taking the following new medications: Apixaban (Eliquis) 5 MG TABLET 5 Milligram ORAL SEE INSTRUCTIONS Qty = 90 No Refills Instructions: TAKE 2 TABS BID DAILY FROM 07/26- 07/31 TAKE ONE TAB BID DAILY FROM 08/01 ONWARDS Comments: Last Taken: 07/26/17 Time: 0545 AM Acetaminophen (Tylenol Extra Strength) 500 MG TABLET 1 Tablet ORAL THREE TIMES DAILY Qty = 60 No Refills Comments: NOT GIVEN IN HOSPITAL Copies To: Oscar Nation MD
[2017-07-26] MEDS ORDERED: CRESTOR10 M1 PO (13:22)
== END 2017-07-26 13:40 | DRG 197 ==
LOC: ERH 10:29 → ERHI 15:47 → EDBEDREQ 15:55 → ERHI 07-26 08:30
PROVIDERS: Internal Medicine Adolescent Medicine; Student in an Organized Health Care Education/Training Program
DX: I82.412 Acute embolism and thrombosis of left femoral vein (principal); I26.99 Other pulmonary embolism without acute cor pulmonale; I10 Essential (primary) hypertension; E78.5 Hyperlipidemia, unspecified; F32.9 Major depressive disorder, single episode, unspecified; Z87.891 Personal history of nicotine dependence; F51.09 Other insomnia not due to a substance or known physiological condition; G72.0 Drug-induced myopathy; T50.995A Adverse effect of other drugs, medicaments and biological substances, initial encounter
CPT/HCPCS: ERO; 93005; 93010; 96365; 96366; J0131; J1644; J3490